=== PATIENT | female | born 1950 | race Caucasian/White ===

== ENCOUNTER 2022-05-11 15:21 | Emergency (ER) | payer MEDICARE, OTHER ==
[~2022-05-11] VITALS: Ht 157.5 cm; Wt 68.0 kg
[~2022-05-11 15:21] MED LIST: ATEN-41 PO; LORA1TAB PO; LOVA20TA2 PO
[2022-05-11 15:23] VITALS: BP_SYST 159
--- NOTE | 2022-05-11 15:36 | NUR ---
Pt arived from home with complaints of dyspnea and chest tightness x 3 weeks with no relief. Hx of asthma, not using albutrol prescribe, currently taking bezonatate pearls for cough. Pt alert and oriented x4, VSS, no signs of acute distress.
--- NOTE | 2022-05-11 15:41 | NUR ---
ER at bedside examining patient.
--- NOTE | 2022-05-11 16:26 | NUR ---
TAKEN TO RADIOLOGY VIA WHEELCHAIR
[2022-05-11] MEDS ORDERED: IPRATROPIUM/ALBUTEROL SULFATE 3 ML AMPUL.NEB (DUONEB) INH ONE (16:30)
[2022-05-11 17:04] LABS: BASOPHILS % (AUTO) 0.6 % (0.0-2.0); EOSINOPHILS # (AUTO) 0.1 K/uL (0.0-0.4); EOSINOPHILS % (AUTO) 1.4 % (0.0-4.0); HEMATOCRIT 37.4 % (36-48); HEMOGLOBIN 12.8 g/dL (12.0-16.0); LYMPHOCYTES # (AUTO) 1.7 K/uL (1.0-5.5); LYMPHOCYTES % (AUTO) 37.3 % (20.5-51.5); MEAN CORPUSCULAR HEMOGLOBIN 29 pg (27-31); MEAN CORPUSCULAR HGB CONC 34 % (32-36); MEAN CORPUSCULAR VOLUME 85 fL (79.0-98.0); MONOCYTES # (AUTO) 0.4 K/uL (0.0-1.0); MONOCYTES % (AUTO) 9.1 % (1.7-9.3); NEUTROPHILS # (AUTO) 2.4 K/uL (1.8-7.7); NEUTROPHILS % (AUTO) 51.6 % (40.0-70.0); PLATELET COUNT (AUTO) 199 K/uL (130-430); RED BLOOD CELL COUNT(AUTO) 4.39 MIL/uL (4.2-6.2); RED CELL DISTRIBUTION WIDTH 14.6 % (9.0-15.0); WHITE BLOOD COUNT (AUTO) 4.6 K/uL (4.8-10.8)
[2022-05-11 17:43] LABS: ANION GAP 9 (5-15); CALCIUM 8.2 mg/dL (8.4-11.0); CHLORIDE 105 mmol/L (98-107); CREATININE 0.68 mg/dL (0.55-1.30); GLUCOSE 106 mg/dL (70-99); UREA NITROGEN, BLOOD 15 mg/dL (8-21)
[2022-05-11 17:46] LABS: ALANINE AMINOTRANSFERASE 22 U/L (12-78); ALBUMIN 3.3 g/dL (3.4-4.8); ASPARTATE AMINOTRANSFERASE 15 U/L (10-37); TOTAL BILIRUBIN 0.3 mg/dL (0.0-1.0)
[2022-05-11] MEDS ORDERED: IPRATROPIUM/ALBUTEROL SULFATE 3 ML AMPUL.NEB (DUONEB) ONE (18:40)
[2022-05-11] MEDS ORDERED: ALBMDI INH ×3 (19:00→19:05)
[2022-05-11] MEDS ORDERED: PRED20TA PO ×3 (19:00→19:05)
[2022-05-11] MEDS ORDERED: CETI1TAB2 PO ×3 (19:02→19:05)
[2022-05-11] MEDS ORDERED: PHEDM120 PO ×3 (19:02→19:05)
[2022-05-11 19:14] VITALS: BP_SYST 155
--- NOTE | 2022-05-11 19:14 | NUR ---
Patient given written and verbal discharge instructions and verbalizes understanding. ER MD discussed with patient the results and treatment provided. Patient in stable condition. ID arm band removed. Rx of Albuterol MDI, Zyrtec-D, Phenergan-DM, and Prednisone given. Patient educated on pain management and to follow up with PMD. Pain Scale 0/10. Opportunity for questions provided and answered. Medication side effect fact sheet provided.
== END 2022-05-11 19:14 | disposition home or self-care (01) ==
LOC: SED 15:21
DX: J20.9 Acute bronchitis, unspecified (principal); R05.9 Cough, unspecified; R06.02 Shortness of breath; J45.909 Unspecified asthma, uncomplicated; I10 Essential (primary) hypertension; Z88.5 Allergy status to narcotic agent; Z88.8 Allergy status to other drugs, medicaments and biological substances; Z79.899 Other long term (current) drug therapy; Z20.822 Contact with and (suspected) exposure to COVID-19
CPT/HCPCS: 36415; 71045; 80053; 83880; 84484; 85025; 93005; 94640; 94760; 99285

== ENCOUNTER 2023-03-06 19:25 | Inpatient (IN) | payer MEDICARE, OTHER ==
[~2023-03-06] VITALS: Ht 157.5 cm; Wt 94.5 kg
[~2023-03-06 19:25] MED LIST changes: +ALBMDI INH; +CETI1TAB2 PO; +PHEDM120 PO; +PRED20TA PO
[2023-03-06 19:51] VITALS: BP_SYST 146; PULSE 95; RESP 16; TEMP 97; O2SAT 97
[2023-03-06] MEDS ORDERED: NACL 0.9% 1,000 ML IV ONE ×2 (20:15→21:15)
[2023-03-06 20:27] LABS: INFLUENZA TYPE A Negative (NEGATIVE); INFLUENZA TYPE B NEGATIVE (NEGATIVE)
[2023-03-06 20:30] LABS: BASOPHILS % (AUTO) 0.3 % (0.0-2.0); EOSINOPHILS # (AUTO) 0.1 K/uL (0.0-0.4); EOSINOPHILS % (AUTO) 1.3 % (0.0-4.0); HEMATOCRIT 42.4 % (36-48); HEMOGLOBIN 13.6 g/dL (12.0-16.0); LYMPHOCYTES # (AUTO) 1.5 K/uL (1.0-5.5); LYMPHOCYTES % (AUTO) 18.9 % (20.5-51.5); MEAN CORPUSCULAR HEMOGLOBIN 28 pg (27-31); MEAN CORPUSCULAR HGB CONC 32 % (32-36); MEAN CORPUSCULAR VOLUME 88 fL (79.0-98.0); MONOCYTES # (AUTO) 0.7 K/uL (0.0-1.0); MONOCYTES % (AUTO) 9.1 % (1.7-9.3); NEUTROPHILS # (AUTO) 5.4 K/uL (1.8-7.7); NEUTROPHILS % (AUTO) 70.4 % (40.0-70.0); PLATELET COUNT (AUTO) 248 K/uL (130-430); RED BLOOD CELL COUNT(AUTO) 4.84 MIL/uL (4.2-6.2); RED CELL DISTRIBUTION WIDTH 15.3 % (9.0-15.0); WHITE BLOOD COUNT (AUTO) 7.7 K/uL (4.8-10.8)
[2023-03-06 20:58] LABS: PROTHROMBIN TIME 9.9 SECS (9.5-12.5)
[2023-03-06 20:59] LABS: ANION GAP 7 (5-15); CALCIUM 9.4 mg/dL (8.4-11.0); CARBON DIOXIDE 27 mmol/L (23-29); CHLORIDE 105 mmol/L (98-107); CREATININE 0.82 mg/dL (0.55-1.30); GLUCOSE 100 mg/dL (74-106); POTASSIUM 4.2 mmol/L (3.5-5.1); SODIUM SERUM 139 mmol/L (136-145); UREA NITROGEN, BLOOD 13 mg/dL (8-21)
[2023-03-06 21:13] LABS: THYROID STIMULATING HORMONE 1.99 uIu/mL (0.34-4.82)
[2023-03-06 21:21] LABS: BILIRUBIN,URINE NEGATIVE (NEGATIVE); BLOOD, URINE 1+ (NEGATIVE); CLARITY/URINE CLEAR (CLEAR); COLOR,URINE YELLOW (YELLOW); GLUCOSE,URINE NEGATIVE (NEGATIVE); KETONES,URINE NEGATIVE (NEGATIVE); LEUKOCYTE ESTERASE ,URINE NEGATIVE (NEGATIVE); NITRITE, URINE NEGATIVE (NEGATIVE); PH,URINE 6.5 (5.0-8.0); PROTEIN URINE NEGATIVE (NEGATIVE); UROBILINOGEN,URINE 0.2 (0.2-1.0)
[2023-03-06] MEDS ORDERED: LABETALOL HCL 20 MG/4 ML CARTRIDGE IVP ONE (21:30)
[2023-03-06 21:35] LABS: BACTERIA,URINE None Seen /HPF (None Seen)
[2023-03-06] MEDS ORDERED: iohexoL 350 mgI/mL, 100 ML INFUS..BTL IV ONE (22:04)
[2023-03-06] MEDS ORDERED: AMIODARONE HCL 150 MG/3ML VIAL ONE (22:42)
[2023-03-06] MEDS ORDERED: AMIODARONE HCL 450 MG/9 ML VIAL IV ONE (22:43)
[2023-03-06] MEDS ORDERED: AMIODARONE HCL 150 MG in D5W 97 ML IV ONE (22:45)
[2023-03-06] MEDS ORDERED: AMIODARONE HCL 450 MG in D5W 241 ML IV ONE (22:45)
[2023-03-07] MEDS ORDERED: AMIODARONE HCL 450 MG/9 ML VIAL IV ONE (00:13)
[2023-03-07] MEDS ORDERED: AMIODARONE HCL 450 MG in D5W 241 ML IV ONE (00:15)
[2023-03-07] MEDS: LORazepam 2 MG/ML VIAL IVP PRN ×3 (00:19→21:21)
[2023-03-07] MEDS ORDERED: OXYMETAZOLINE HCL 0.05% NASAL SPRAY NS PRN (01:00)
[2023-03-07] MEDS ORDERED: AMIODARONE HCL 450 MG in D5W 241 ML IV SCH ×2 (09:45→11:00)
[2023-03-07] MEDS ORDERED: ACETAMINOPHEN 325 MG TABLET PO PRN (11:00)
[2023-03-07] MEDS ORDERED: ALBUTEROL MDI INHALATION 8 GM INH INH PRN (11:00)
[2023-03-07] MEDS ORDERED: ATENOLOL 25 MG TABLET(TENORMIN) PO SCH (11:00)
[2023-03-07] MEDS ORDERED: PROMETHAZINE-DM 6.25 MG-15 MG/5 ML UDC PO PRN (11:00)
[2023-03-07] MEDS ORDERED: ONDANSETRON HCL 4 MG/2 ML VIAL IVP PRN (11:00)
[2023-03-07] MEDS ORDERED: DIGOXIN 0.5 MG/2 ML AMP IVP ONE ×2 (11:30→18:00)
[2023-03-07] MEDS ORDERED: FUROSEMIDE 20 MG/2 ML VIAL IVP ONE (12:30)
[2023-03-07] MEDS ORDERED: DILTIAZEM HCL 60 MG TABLET PO ONE (12:30)
[2023-03-07] MEDS ORDERED: APIXABAN 2.5 MG TABLET PO ONE (12:30)
[2023-03-07 12:35] VITALS: PULSE 120; O2SAT 97
[2023-03-07] MEDS ORDERED: ALBUTEROL SULFATE 0.083% 2.5 MG/3 ML VIAL.NEB INH PRN (12:45)
[2023-03-07] MEDS: ACETAMINOPHEN 325 MG TABLET PO PRN ×2 (12:52→21:19)
[2023-03-07] MEDS ORDERED: LOVASTATIN 20 MG TABLET PO SCH ×2 (18:00→21:00)
[2023-03-07] MEDS ORDERED: NON-FORMULARY MEDICATION (Cetirizine Hcl/Pseudoephedrine (Zyrtec-D Tablet) 1 TAB) PO SCH (21:00)
[2023-03-07] MEDS: APIXABAN 2.5 MG TABLET PO SCH (21:21)
[2023-03-07] MEDS: DILTIAZEM HCL 60 MG TABLET PO SCH (21:23)
[2023-03-07] MEDS: NORMAL SALINE 5 ML DISP.SYRIN IVF SCH (21:30)
[2023-03-07 21:33] VITALS: BP_SYST 130; PULSE 84; RESP 18; TEMP 97.1
[2023-03-08] MEDS ORDERED: DIGOXIN 0.5 MG/2 ML AMP IVP ONE
[2023-03-08 00:06] VITALS: BP_SYST 137; PULSE 80; RESP 20; TEMP 98.1; O2SAT 97
[2023-03-08] MEDS: LORazepam 2 MG/ML VIAL IVP PRN (03:32)
[2023-03-08] MEDS: DILTIAZEM HCL 60 MG TABLET PO SCH (05:57)
[2023-03-08] MEDS: NORMAL SALINE 5 ML DISP.SYRIN IVF SCH (05:57)
[2023-03-08 06:35] LABS: BASOPHILS % (AUTO) 0.4 % (0.0-2.0); EOSINOPHILS # (AUTO) 0.2 K/uL (0.0-0.4); EOSINOPHILS % (AUTO) 2.5 % (0.0-4.0); HEMATOCRIT 42.5 % (36-48); HEMOGLOBIN 13.8 g/dL (12.0-16.0); LYMPHOCYTES # (AUTO) 1.3 K/uL (1.0-5.5); LYMPHOCYTES % (AUTO) 18.3 % (20.5-51.5); MEAN CORPUSCULAR HEMOGLOBIN 28 pg (27-31); MEAN CORPUSCULAR HGB CONC 33 % (32-36); MEAN CORPUSCULAR VOLUME 88 fL (79.0-98.0); MONOCYTES # (AUTO) 0.7 K/uL (0.0-1.0); MONOCYTES % (AUTO) 9.8 % (1.7-9.3); NEUTROPHILS # (AUTO) 5.1 K/uL (1.8-7.7); PLATELET COUNT (AUTO) 214 K/uL (130-430); RED BLOOD CELL COUNT(AUTO) 4.86 MIL/uL (4.2-6.2); RED CELL DISTRIBUTION WIDTH 15.2 % (9.0-15.0); WHITE BLOOD COUNT (AUTO) 7.3 K/uL (4.8-10.8)
[2023-03-08 07:09] LABS: ANION GAP 9 (5-15); CALCIUM 9.1 mg/dL (8.4-11.0); CARBON DIOXIDE 25 mmol/L (23-29); CHLORIDE 106 mmol/L (98-107); CREATININE 0.68 mg/dL (0.55-1.30); GLUCOSE 104 mg/dL (74-106); POTASSIUM 4.4 mmol/L (3.5-5.1); SODIUM SERUM 140 mmol/L (136-145); UREA NITROGEN, BLOOD 9 mg/dL (8-21)
[2023-03-08] MEDS ORDERED: FUROSEMIDE 20 MG/2 ML VIAL IVP SCH (09:00)
[2023-03-08] MEDS ORDERED: DILTIAZEM HCL 240 MG CAP.SR.24H PO ONE (10:30)
[2023-03-08 11:10] VITALS: BP_SYST 107; PULSE 69; RESP 19; TEMP 98.4; O2SAT 95
[2023-03-08] MEDS: APIXABAN 2.5 MG TABLET PO SCH (11:11)
[2023-03-08] MEDS ORDERED: APIX2.5T PO (11:46)
[2023-03-08] MEDS ORDERED: DILT240C91 PO (11:46)
[2023-03-08] MEDS ORDERED: DIGO250T PO (11:46)
[2023-03-08 12:33] VITALS: BP_SYST 130; PULSE 84; RESP 20; TEMP 97.4; O2SAT 95
[2023-03-09] MEDS ORDERED: DILTIAZEM HCL 240 MG CAP.SR.24H PO SCH (09:00)
[2023-03-09] MEDS ORDERED: DIGOXIN 0.25 MG TABLET PO SCH (09:00)
== END 2023-03-08 14:00 | disposition short-term general hospital (02) | DRG 309 ==
LOC: SED 19:25 → SIC 03-07 → STU 03-07 20:08
PROVIDERS: ADMIT Preventive Medicine Preventive Medicine/Occupational Environmental Medicine; ATTEND Preventive Medicine Preventive Medicine/Occupational Environmental Medicine
DX: I48.20 Chronic atrial fibrillation, unspecified (principal); I24.89 Other forms of acute ischemic heart disease; I10 Essential (primary) hypertension; E78.5 Hyperlipidemia, unspecified; J45.909 Unspecified asthma, uncomplicated; Z20.822 Contact with and (suspected) exposure to COVID-19; Z88.8 Allergy status to other drugs, medicaments and biological substances; Z88.1 Allergy status to other antibiotic agents; Z91.040 Latex allergy status; Z79.899 Other long term (current) drug therapy; Z79.01 Long term (current) use of anticoagulants; Z90.49 Acquired absence of other specified parts of digestive tract; Z90.710 Acquired absence of both cervix and uterus
CPT/HCPCS: 36415; 71045; 71275; 76376; 80048; 81000; 81001; 81015; 83605; 83880; 84439; 84443; 84484; 85025; 85379; 85610-TC; 85730-TC; 87040; 87086; 93005; 93306; 96365; 96375; 99291; G0378; J0282; J1160; J1940; J2060; J7060; Q9967